=== PATIENT | male | born 1955 | race Two or more races ===

== ENCOUNTER → 2023-09-14 | Outpatient (CLI) | payer OTHER | END | disposition home or self-care (01) | LOC: LAB 16:15 | PROVIDERS: ATTEND Anesthesiology | DX: L02.212 Cutaneous abscess of back [any part, except buttock and flank] (principal) | CPT/HCPCS: 87077; 87186; 87205 ==

== ENCOUNTER → 2023-10-03 | Outpatient (CLI) | payer OTHER ==
[2023-10-03 10:35] LABS: Basophils # (auto) 0 10 ^3/uL (0-0.2); Basophils % (auto) 0.6 % (0.0-2.0); Eosinophils # (auto) 0.2 10 ^3/uL (0-0.8); Eosinophils % (auto) 2.8 % (0.0-7.0); Hematocrit 51.7 % (41.0-53.0); Hemoglobin 17.4 g/dL (13.5-17.5); Lymphocytes # (auto) 2.6 10 ^3/uL (0.4-5.4); Lymphocytes % (auto) 32.7 % (10.0-50.0); Mean Corpuscular Hemoglobin 31.8 pg (28.0-32.0); Mean Corpuscular Hgb Conc. 33.7 g/dL (32.0-36.0); Mean Corpuscular Volume 94.3 fL (80.0-100.0); Monocytes # (auto) 0.7 10 ^3/uL (0-1.3); Monocytes % (auto) 9.3 % (0.0-12.0); Neutrophils # (auto) 4.3 10 ^3/uL (1.6-8.6); Neutrophils % (auto) 54.6 % (37.0-80.0); Nucleated Red Blood Cells % 0.3 %; Red Blood Cells 5.48 10^6/uL (4.5-5.90); Red Cell Distribution Width 14.3 % (11.8-14.3); White Blood Cell 7.8 10^3/uL (4.4-10.8)
[2023-10-03 11:10] LABS: Erythrocyte Sedimentation Rate 4 mm/hr (0-20)
[2023-10-03 11:49] LABS: Alanine Aminotransferase 31 U/L (7-40); Alkaline Phosphatase 105 U/L (46-116); Anion Gap 6 (5-15); BUN/Creatinine Ratio 8.9 (10.0-20.0); Blood Urea Nitrogen 9 mg/dL (9-23); Calcium 9.6 mg/dL (8.5-10.1); Carbon Dioxide 27 mmol/L (20-30); Chloride 108 mmol/L (98-107); Glucose 133 mg/dL (74-106); Potassium 4.2 mmol/L (3.5-5.1); Sodium 141 mmol/L (136-145)
[2023-10-03 11:50] LABS: Albumin 4.8 g/dL (3.2-4.8); Aspartate Aminotransferase 33 U/L (13-40)
[2023-10-03 11:51] LABS: Bilirubin, Total 1.1 mg/dL (0.2-1.0); Total Protein 7.4 g/dL (5.7-8.2)
[2023-10-03 12:18] LABS: Uric Acid 6.6 mg/dL (3.7-9.2)
[2023-10-04 08:06] LABS: Rheumatoid Arthritis Factor <10.0 IU/mL (<14.0)
[2023-10-04 08:41] LABS: Hepatitis B Surface Antibody Negative (Negative)
[2023-10-04 08:51] LABS: Hepatitis B Surface Antigen Negative (Negative)
[2023-10-04 09:13] LABS: Hepatitis B Core IgM Negative; Hepatitis C Antibody Negative (Negative)
[2023-10-04 11:06] LABS: Hepatitis B Core Total Antibod Negative (Negative)
[2023-10-05 10:06] LABS: QuantiFERON-TB Gold Plus Negative (Negative)
[2023-10-05 13:07] LABS: CCP IgG/IgA Antibody 0 units (0-19)
== END | disposition home or self-care (01) ==
LOC: LAB 09:52
PROVIDERS: ATTEND Internal Medicine Rheumatology
DX: L40.50 Arthropathic psoriasis, unspecified (principal)
CPT/HCPCS: 36415; 80053; 84550; 85025; 85652; 86200; 86431; 86705; 86706; 86803; 86812; 87340

== ENCOUNTER 2023-12-07 08:36 | Day surgery (SDC) | payer OTHER ==
[2023-11-30 12:37] LABS: Lymphocytes # (auto) 3.2 10 ^3/uL (0.4-5.4); Lymphocytes % (auto) 34.6 % (10.0-50.0); Mean Corpuscular Hgb Conc. 34.2 g/dL (32.0-36.0); Monocytes # (auto) 0.7 10 ^3/uL (0-1.3); Neutrophils # (auto) 5.1 10 ^3/uL (1.6-8.6); Nucleated Red Blood Cells % 0.1 %; White Blood Cell 9.3 10^3/uL (4.4-10.8)
[2023-11-30 12:38] LABS: Basophils # (auto) 0.1 10 ^3/uL (0-0.2); Basophils % (auto) 0.5 % (0.0-2.0); Eosinophils # (auto) 0.2 10 ^3/uL (0-0.8); Eosinophils % (auto) 1.8 % (0.0-7.0); Hematocrit 51.8 % (41.0-53.0); Hemoglobin 17.7 g/dL (13.5-17.5); Mean Corpuscular Hemoglobin 31.7 pg (28.0-32.0); Mean Corpuscular Volume 92.8 fL (80.0-100.0); Monocytes % (auto) 7.6 % (0.0-12.0); Neutrophils % (auto) 55.5 % (37.0-80.0); Red Blood Cells 5.57 10^6/uL (4.5-5.90); Red Cell Distribution Width 14.9 % (11.8-14.3)
[2023-11-30 12:54] LABS: INR 0.97 (0.9-1.15); Partial Thromboplastin Time 26.7 SEC (24.5-34.5); Prothrombin Time 10.3 sec (9.3-11.8)
[2023-11-30 13:07] LABS: Alanine Aminotransferase 20 U/L (7-40); Albumin 4.7 g/dL (3.2-4.8); Alkaline Phosphatase 110 U/L (46-116); Anion Gap 6 (5-15); Aspartate Aminotransferase 9 U/L (13-40); BUN/Creatinine Ratio 14.6 (10.0-20.0); Bilirubin, Total 0.7 mg/dL (0.2-1.0); Blood Urea Nitrogen 15 mg/dL (9-23); Carbon Dioxide 25 mmol/L (20-30); Chloride 109 mmol/L (98-107); Glucose 174 mg/dL (74-106); Potassium 4.3 mmol/L (3.5-5.1); Sodium 140 mmol/L (136-145); Total Protein 7.2 g/dL (5.7-8.2)
[~2023-12-07] VITALS: Ht 188 cm; Wt 104.3 kg
[~2023-12-07 08:36] MED LIST: HYDR-4902 PO; MELO15TA29 PO; TIZA4CAP PO
[2023-12-07] MEDS ORDERED: FLUMAZENIL 0.1 MG/ML INJ 10ML MDV IV ONE (08:57)
[2023-12-07] MEDS ORDERED: SODIUM CHLORIDE LOCK 10 ML ONE (08:57)
[2023-12-07] MEDS ORDERED: NALOXONE HCL 0.4 MG/ML VIAL ONE (08:57)
[2023-12-07 11:26] VITALS: O2SAT 100
[2023-12-07] MEDS: fentaNYL CITRATE 100 MCG/2 ML VL ONE (11:29)
[2023-12-07] MEDS: diphenhdrAMINE HCL 50 MG/1 ML VL ONE (11:29)
[2023-12-07] MEDS: MIDAZOLAM HCL 5 MG/ML-1ML VIAL ONE (11:29)
[2023-12-07 11:52] VITALS: RESP 20; TEMP 97.2; O2SAT 96
[2023-12-07 12:16] VITALS: BP 136/76; PULSE 60; RESP 16; O2SAT 97
== END 2023-12-07 12:27 | disposition home or self-care (01) ==
LOC: GI 08:36
PROVIDERS: ATTEND Internal Medicine Gastroenterology
DX: Z12.11 Encounter for screening for malignant neoplasm of colon (principal); D12.4 Benign neoplasm of descending colon; K64.8 Other hemorrhoids; F17.210 Nicotine dependence, cigarettes, uncomplicated; Z79.899 Other long term (current) drug therapy; Z98.890 Other specified postprocedural states
CPT/HCPCS: 36415; 45380; 80053; 85025; 85610; 85730; 88305; J1200; J2250; J3010; J7030; 99152

== ENCOUNTER → 2023-12-10 | Outpatient (CLI) | payer OTHER ==
[2023-12-10 14:47] LABS: Basophils # (auto) 0.1 10 ^3/uL (0-0.2); Eosinophils # (auto) 0.2 10 ^3/uL (0-0.8); Eosinophils % (auto) 2.3 % (0.0-7.0); Hematocrit 48.5 % (41.0-53.0); Hemoglobin 16.5 g/dL (13.5-17.5); Lymphocytes # (auto) 3.2 10 ^3/uL (0.4-5.4); Lymphocytes % (auto) 40.4 % (10.0-50.0); Mean Corpuscular Hemoglobin 31.8 pg (28.0-32.0); Mean Corpuscular Hgb Conc. 34.1 g/dL (32.0-36.0); Mean Corpuscular Volume 93.3 fL (80.0-100.0); Monocytes # (auto) 0.7 10 ^3/uL (0-1.3); Monocytes % (auto) 8.8 % (0.0-12.0); Neutrophils # (auto) 3.8 10 ^3/uL (1.6-8.6); Neutrophils % (auto) 47.5 % (37.0-80.0); Nucleated Red Blood Cells % 0.2 %; Red Cell Distribution Width 14.5 % (11.8-14.3)
== END | disposition home or self-care (01) ==
LOC: LAB 14:29
DX: B35.1 Tinea unguium (principal)
CPT/HCPCS: 36415; 82565; 84450; 84460; 84520; 85025

== ENCOUNTER → 2024-07-21 | Outpatient (CLI) | payer OTHER ==
[2024-07-21 07:36] LABS: Basophils # (auto) 0.1 10 ^3/uL (0-0.2); Lymphocytes # (auto) 2.5 10 ^3/uL (0.4-5.4); Mean Corpuscular Volume 93.9 fL (80.0-100.0); Red Blood Cells 5.72 10^6/uL (4.5-5.90)
[2024-07-21 07:37] LABS: Creatinine, Urine 192.83 mg/dL (30.0-125.0)
[2024-07-21 07:39] LABS: Basophils % (auto) 0.5 % (0.0-2.0); Eosinophils # (auto) 0.2 10 ^3/uL (0-0.8); Eosinophils % (auto) 2.5 % (0.0-7.0); Hematocrit 53.8 % (41.0-53.0); Hemoglobin 18.5 g/dL (13.5-17.5); Lymphocytes % (auto) 24.8 % (10.0-50.0); Mean Corpuscular Hemoglobin 32.3 pg (28.0-32.0); Mean Corpuscular Hgb Conc. 34.4 g/dL (32.0-36.0); Monocytes # (auto) 0.7 10 ^3/uL (0-1.3); Monocytes % (auto) 6.9 % (0.0-12.0); Neutrophils # (auto) 6.4 10 ^3/uL (1.6-8.6); Neutrophils % (auto) 65.3 % (37.0-80.0); Nucleated Red Blood Cells % 0.1 %; Platelet Count (auto) 255 10^3/uL (140-450); Red Cell Distribution Width 13.9 % (11.8-14.3); White Blood Cell 9.9 10^3/uL (4.4-10.8)
[2024-07-21 07:40] LABS: Alanine Aminotransferase 26 U/L (7-40); Anion Gap 6 (5-15); Aspartate Aminotransferase 17 U/L (13-40); Blood Urea Nitrogen 12 mg/dL (9-23); Calcium 10.4 mg/dL (8.7-10.4); Carbon Dioxide 30 mmol/L (20-31); Chloride 105 mmol/L (98-107); Cholesterol 176 mg/dL (< 200); Sodium 141 mmol/L (136-145)
[2024-07-21 07:41] LABS: Albumin 5.1 g/dL (3.2-4.8); Alkaline Phosphatase 184 U/L (46-116); Bilirubin, Total 1.1 mg/dL (0.2-1.0); Glucose 149 mg/dL (74-106); HDL Cholesterol 34 mg/dL (40-59); LDL Cholesterol 124 mg/dL (< 100); Total Protein 7.5 g/dL (5.7-8.2); Triglycerides 179 mg/dL (< 150)
[2024-07-22 08:06] LABS: PSA Free 1.16 ng/mL; Prostate Specific Antigen 6.1 ng/mL (0.0-4.0)
== END | disposition home or self-care (01) ==
LOC: LAB 06:51
PROVIDERS: ATTEND Nurse Practitioner Family
DX: Z00.01 Encounter for general adult medical examination with abnormal findings (principal); E11.42 Type 2 diabetes mellitus with diabetic polyneuropathy
CPT/HCPCS: 36415; 80053; 80061; 82043; 82570; 83036; 84153; 84154; 84443; 85025

== ENCOUNTER → 2024-10-23 | Outpatient (CLI) | payer OTHER | END | disposition home or self-care (01) | LOC: LAB 06:56 | PROVIDERS: ATTEND Urology | DX: R97.20 Elevated prostate specific antigen [PSA] (principal) | CPT/HCPCS: 36415; 82565; 84520 ==

== ENCOUNTER → 2025-01-02 | Day surgery (SDC) | payer OTHER ==
[2024-12-26 10:27] LABS: Hemoglobin 18.5 g/dL (13.5-17.5); Mean Corpuscular Hemoglobin 32.0 pg (28.0-32.0)
[2024-12-26 10:28] LABS: Hematocrit 53.6 % (41.0-53.0); Mean Corpuscular Volume 92.5 fL (80.0-100.0); Nucleated Red Blood Cells % 0.0 %
[2024-12-26 10:41] LABS: INR 0.93 (0.9-1.15); Partial Thromboplastin Time 27.8 SEC (24.5-34.5); Prothrombin Time 9.9 sec (9.3-11.8)
[2024-12-26 10:50] LABS: Alanine Aminotransferase 38 U/L (7-40); Calcium 10.2 mg/dL (8.7-10.4); Carbon Dioxide 24 mmol/L (20-31); Chloride 105 mmol/L (98-107)
[2024-12-26 10:51] LABS: Albumin 4.9 g/dL (3.2-4.8); Alkaline Phosphatase 122 U/L (46-116); Anion Gap 7 (5-15); BUN/Creatinine Ratio 10.8 (10.0-20.0); Bilirubin, Total 1.0 mg/dL (0.2-1.0); Blood Urea Nitrogen 12 mg/dL (9-23); Glucose 260 mg/dL (74-106); Potassium 4.1 mmol/L (3.5-5.1); Sodium 136 mmol/L (136-145); Total Protein 7.3 g/dL (5.7-8.2)
[~2025-01-02] VITALS: Ht 188 cm; Wt 117.9 kg
[~2025-01-02] MED LIST changes: +B-COCAP34 OR; +FERR1TAB31 PO; -HYDR-4902 PO; -MELO15TA29 PO; +SODIUM CHLORIDE LOCK 10 ML ONE; -TIZA4CAP PO
[2025-01-02 11:00] VITALS: PULSE 80; RESP 18; O2SAT 95
[2025-01-02] MEDS: diphenhdrAMINE HCL 50 MG/1 ML VL ONE (11:03)
[2025-01-02] MEDS: fentaNYL CITRATE 100 MCG/2 ML VL ONE (11:03)
[2025-01-02] MEDS: LIDOCAINE VISCOUS 2% 15ML UD ONE (11:03)
[2025-01-02] MEDS: MIDAZOLAM HCL 5 MG/ML-1ML VIAL ONE (11:03)
[2025-01-02 11:20] VITALS: PULSE 71; RESP 15; O2SAT 97
[2025-01-02 11:50] VITALS: BP 124/82; PULSE 78; RESP 17; O2SAT 98
--- NOTE | 2025-01-02 15:00 | DVHOP2 ---
Operative Report DATE OF OPERATION: 01/02/25 PROCEDURE: Upper Endoscopy with biopsy. PREOPERATIVE INDICATION: The patient is a 69 -year-old male undergoing endoscopy for mild chronic GERD POSTOPERATIVE DIAGNOSES: 1. Mild gastritis with erosions hyperemia and erythema and inflammatory nodules in the antrum 2. Mild duodenitis of the duodenal bulb and postbulbar area 3. Slightly irregular squamocolumnar junction with no significant erosive esoph agitis PROCEDURE PERFORMED BY: Corrine Greenberg GI NURSE: Amy SCOPE: Olympus videoendoscope. ASA CLASS: 2. PREOPERATIVE MEDICATIONS: Versed 4 mg, Fentanyl 100 mcg, Benadryl 50 mg I administered moderate sedation throughout this _12_ minutes procedure. An independent trained observer pushed medications at my direction, and monitored the patient's level of consciousness and physiological status throughout. PROCEDURE IN DETAIL: After obtaining an informed consent, the patient was placed on left lateral decubitus position. The patient was then sedated with the above medications. A bite block was placed between his teeth. The endoscope was then passed through the oropharynx, into the esophagus, and through the stomach and pylorus up to the second and third part of the duodenum. The endoscope was then withdrawn. The 2nd and 3rd part of the duodenum were normal and the duodenal bulb showed mild duodenitis. Duodenal biopsies were obtained The pre-pyloric area antrum and body showed mild gastritis with superficial erosions and inflammatory nodules with superficial erosions. Gastric biopsies were obtained. On retroflexion the fundus cardia and angularis were normal. The endoscope was then withdrawn into distal esophagus Patient had a slightly irregular squamocolumnar junction with no significant erosive esophagitis. GE junction biopsies were obtained The remaining distal and proximal esophagus and oropharynx were unremarkable. Patient tolerated the procedure well. The patient tolerated the procedure well without difficulty. COMPLICATIONS : None SPECIMENS: Duodenal biopsies Gastric biopsies GE junction biopsies DISPOSITION: Stable D/C to home PLAN: 1. Await for biopsy result 2. Will place pt on Protonix 40 mg bid 3. Resume GI soft diet advance as tolerated 4. Outpatient follow up with me in 4-6 weeks to review results and discuss further management 5. DC aspirin NSAIDs smoking alcohol CORRINE GREENBERG MD Jan 02, 2025 15:00
== END | disposition home or self-care (01) ==
LOC: GI 08:09
PROVIDERS: ATTEND Internal Medicine Gastroenterology
DX: K21.00 Gastro-esophageal reflux disease with esophagitis, without bleeding (principal); K29.80 Duodenitis without bleeding; K29.50 Unspecified chronic gastritis without bleeding; F17.200 Nicotine dependence, unspecified, uncomplicated
CPT/HCPCS: 36415; 43239; 80053; 85025; 85610; 85730; 88305; 88342; J1200; J2250; J3010; J7030